=== PATIENT | female | born 1970 | race Caucasian/White ===

== ENCOUNTER 2017-06-16 14:34 | Outpatient (CLI) | payer OTHER ==
[2012-10-05 16:59] VITALS: BP 176/66
--- NOTE | 2017-06-16 16:17 | Diagnostic Imaging Report ---
EDSON FERRER [facility] [address] [facility]ly [facility] [address] [address] Report Submission Date: Jun 16, 2017 3:40:22 PM CDT Patient Study Name: DONOVAN HERNNADEZ Date: Jun 16, 2017 2:01:05 PM CDT Modality Type: US Gender: F Description: UNILAT LTD STDY EXT VEINS : 68 Institution: [facility] Physician: EDSON FERRER Examination: Ultrasound vein History: Leg discomfort Findings: Sonographic evaluation of the left lower extremity venous system from the groin to the popliteal fossa inclusive. Normal compressibility. No luminal filling defect. Normal waveforms and response to augmentation. No popliteal region fluid collection. Impression: No evidence for deep venous thrombosis. Electronically signed on Jun 16, 2017 3:40:22 PM CDT by: Matthieu RENAE
== END 2017-06-16 14:35 ==
LOC: RAD 14:34
PROVIDERS: ATTEND Family Medicine
DX: M79.89 Other specified soft tissue disorders (principal); E03.9 Hypothyroidism, unspecified
CPT/HCPCS: 36415; 84439; 84443; 84481; 93971

== ENCOUNTER 2017-06-30 10:52 | Outpatient (CLI) | payer OTHER ==
[2012-10-05 16:59] VITALS: BP 176/66
[2017-06-30 11:18] LABS: BASOPHILS % 0.4 (0.0-1.5); EOSINOPHILS % 2.5 % (0.0-6.8); MEAN CORPUSCULAR HEMOGLOBIN 28.9 pg (28.0-34.0); MEAN CORPUSCULAR VOLUME 87.6 fl (80.0-100.0); MONOCYTES % 5.2 % (0.0-11.0); NEUTROPHILS # 4.9 # k/uL (1.4-7.7)
[2017-06-30 12:01] LABS: eGFR (African) > 60; eGFR (Non-African) > 60
== END 2017-06-30 11:26 ==
LOC: RT 10:52
PROVIDERS: ATTEND Family Medicine
DX: R42 Dizziness and giddiness (principal)
CPT/HCPCS: 36415; 80053; 85025

== ENCOUNTER 2017-07-13 14:00 | Outpatient (CLI) | payer OTHER ==
[2012-10-05 16:59] VITALS: BP 176/66
== END 2017-07-13 14:02 ==
LOC: CARD 14:00
PROVIDERS: ATTEND Internal Medicine Cardiovascular Disease
DX: R55 Syncope and collapse (principal); Z86.79 Personal history of other diseases of the circulatory system; I10 Essential (primary) hypertension; Z72.0 Tobacco use
CPT/HCPCS: 99213

== ENCOUNTER 2017-08-30 09:23 | Outpatient (CLI) | payer OTHER ==
[2012-10-05 16:59] VITALS: BP 176/66
[2017-08-30 09:49] LABS: MEAN CORPUSCULAR HEMOGLOBIN 29.5 pg (28.0-34.0); MEAN CORPUSCULAR VOLUME 87.5 fl (80.0-100.0)
== END 2017-08-30 09:30 ==
LOC: LAB 09:23
PROVIDERS: ATTEND Family Medicine
DX: N93.8 Other specified abnormal uterine and vaginal bleeding (principal)
CPT/HCPCS: 36415; 82670; 83001; 83002; 85027

== ENCOUNTER 2018-06-14 15:06 | Outpatient (CLI) | payer OTHER ==
[2012-10-05 16:59] VITALS: BP 176/66
[2018-06-14 16:38] LABS: eGFR (Non-African) > 60
== END 2018-06-14 15:08 ==
LOC: RT 15:06
PROVIDERS: ATTEND Family Medicine
DX: R06.09 Other forms of dyspnea (principal); R42 Dizziness and giddiness
CPT/HCPCS: 36415; 80053; 85027

== ENCOUNTER 2019-06-14 10:59 | Outpatient (CLI) | payer OTHER ==
[2012-10-05 16:59] VITALS: BP 176/66
[2019-06-14 13:23] LABS: TSH 0.52 mIU/l (0.465-4.685)
== END 2019-06-14 11:05 ==
LOC: LAB 10:59
PROVIDERS: ATTEND Family Medicine
DX: E03.9 Hypothyroidism, unspecified (principal)
CPT/HCPCS: 36415; 84439; 84443; 84481

== ENCOUNTER 2019-07-07 10:22 | Outpatient (CLI) | payer OTHER ==
[2012-10-05 16:59] VITALS: BP 176/66
[2019-07-07 10:39] LABS: BASOPHILS % 0.2 % (0.0-1.5); NEUTROPHILS # 5.6 # k/uL (1.4-7.7)
[2019-07-07 11:27] LABS: eGFR (Non-African) > 60
[2019-07-07 11:28] LABS: HDL 32 mg/dL (>40)
== END 2019-07-07 10:27 ==
LOC: LAB 10:22
PROVIDERS: ATTEND Family Medicine
DX: Z13.220 Encounter for screening for lipoid disorders (principal)
CPT/HCPCS: 36415; 80053; 80061; 85025

== ENCOUNTER 2019-07-26 10:50 | Emergency (ER) | payer OTHER ==
--- NOTE | 2019-07-26 11:00 | ED Physician Documentation ---
Syncope/Near Syncope - HISTORIAN Historian: patient - HPI Stated Complaint: syncope with dizziness for a month or so Chief Complaint: Syncope Witnessed: No Position at Time of Episode: sitting (she states she had the forethought to sit down she felt it coming on ) Symptoms Prior to Episode: light-headed, visual disturbance, nausea, vomiting. denies: chest pain, palpitations, racing heart, abdominal pain, back pain Symptoms after Event: denies: confused after event, incontinent of urine, incontinent of stool, breathing shallow, breathing stopped, lost pulse, dextrostick low RECEIVER, given D50 RECEIVER Location of Injury: none Associated Symptoms: nausea, vomiting, dizziness Further Comments: yes (She reports she did see Dr Garibay (PCP) for dizziness and she was dx with vertigo. She states she has had issues with dizziness for a month or so. She states the dx made sense due to increased dizzness with turning in bed and a family history. She does have heavy periods. she does feel weak post event. She has had no recent illness. No prior concerns other than the dizziness. SHe was in a hot shower. She states she did get a wave of dizziness. nausea and started to vomit and she also notes the thought to sit down so she did sit.) - ROS CONST: denies: recent illness, fever, cough, chills EYES/ENT: none GI/: denies: diarrhea LNMP: denies: NEURO/PSYCH: denies: confusion - PAST HX Cardiac Disease: other (valve condition ) Allergies/Adverse Reactions: Allergies Allergy/AdvReac Type Severity Reaction Status Date / Time Penicillins Allergy Severe Hives Verified 07/26/19 11:40 Home Medications: Ambulatory Orders Medication Instructions Recorded Meclizine HCl 25 mg PO PRN PRN 07/26/19 - SOCIAL HX Smoking History: cigarettes Alcohol Use: none Drug Use: none - FAMILY HX Family History: none - VITAL SIGNS Vital Signs: Vital Signs Temp Pulse Resp BP Pulse Ox 97.8 F 72 16 166/82 99 07/26/19 11:00 07/26/19 13:17 07/26/19 12:58 07/26/19 12:58 07/26/19 12:58 - REVIEWED ASSESSMENTS Nursing Assessment Reviewed: Yes Vitals Reviewed: Yes Progress - Progress Progress: 1300: discussed findings and plan she is agreeable DG ED Results Lab/Radiology - Lab Results Lab Results: Lab Results 07/26/19 07/26/19 11:17 11:17 WBC 11.20 K/ul K/ul (4.00-12.00) RBC 5.48 M/ul H M/ul (3.90-5.20) Hgb 16.5 g/dL H g/dL (11.5-16.0) Hct 49.7 % H % (34.5-46.5) MCV 91.0 fl fl (80.0-100.0) MCH 30.2 pg pg (28.0-34.0) MCHC 33.3 g/dL g/dL (30.0-36.0) RDW 11.3 % % (11.3-14.3) Plt Count 245 K/mm3 K/mm3 (130-400) Neut % (Auto) 79.4 % H % (39.0-79.0) Lymph % (Auto) 10.9 % L % (16.0-50.0) Forest % (Auto) 8.0 % % (0.0-11.0) Eos % (Auto) 1.0 % % (0.0-6.8) Baso % (Auto) 0.7 % % (0.0-1.5) Neut # (Auto) 8.9 # k/uL H # k/uL (1.4-7.7) Lymph # (Auto) 1.2 # k/uL # k/uL (0.6-4.0) Forest # (Auto) 0.9 # k/uL # k/uL (0.0-0.9) Eos # (Auto) 0.1 # k/uL # k/uL (0.0-0.6) Baso # (Auto) 0.1 # k/uL # k/uL (0.0-0.5) Sodium 143 mmol/L mmol/L (137-145) Potassium 3.5 mmol/L mmol/L (3.5-5.1) Chloride 102 mmol/L mmol/L (98-107) Carbon Dioxide 30 mmol/L mmol/L (22-30) Anion Gap 14.5 BUN 12 mg/dL mg/dL (7-17) Creatinine 0.82 mg/dL mg/dL (0.52-1.04) Est GFR ( Amer) > 60 (60 - ) Est GFR (Non-Af Amer) > 60 (60 - ) Glucose 74 mg/dL mg/dL (74-106) Calcium 10.0 mg/dL mg/dL (8.4-10.2) Total Bilirubin 0.8 mg/dL mg/dL (0.2-1.3) AST 23 U/L U/L (15-46) ALT 13 U/L U/L (0-35) Alkaline Phosphatase 77 U/L U/L (38-126) Total Protein 8.6 g/dL H g/dL (6.3-8.2) Albumin 4.7 g/dL g/dL (3.5-5.0) - Orders Orders: ED Orders Category Date Time Status Continuous EKG monitoring Q1H Care 07/26/19 11:17 Active IV Started NOW Care 07/26/19 11:17 Active Orthostatics 1T Care 07/26/19 12:[address] BRAIN W/O CONTRAST Stat Exams 07/26/19 Completed CBC/PLATELET/DIFF Stat Lab 07/26/19 11:17 Completed CMP Stat Lab 07/26/19 11:17 Completed UA W/MICRO IF INDICATED Routine Lab 07/26/19 11:17 Ordered 0.9 % Sodium Chloride [Normal Saline] 1,000 ml Med 07/26/19 11:17 Discontinued IV NOW Syncope Physical Exam - Physical Exam General Appearance: no acute distress, alert EENT: nml eye inspection, PERRL, scleral icterus Respiratory: no resp distress, chest non-tender, breath sounds normal CVS: reg rate & rhythm, heart sounds normal, equal pulses Abdomen: non-tender, nml bowel sounds Skin: warm/dry Extremities: non-tender, normal range of motion, no evidence of injury, no edema - Neuro/Psych Higher Functions: alert, oriented x3 Discharge Clincal Impression: Syncope Qualifiers: Syncope type: unspecified Qualified Code(s): R55 - Syncope and collapse Referrals: Brook Garibay MD [Primary Care Provider] - 2 Days Comments: 1. Change position slowly 2. Eat small frequent meals 3. Follow up with PCP 4. Return to ER for any increased concerns Condition: Stable Disposition: 01 HOME, SELF-CARE Decision to Admit: NO (t) Date of Decison to Admit: 07/26/19 Decision Time: 13:00
[2019-07-26] MEDS ORDERED: 0.9 % SODIUM CHLORIDE 1,000 ML IV ONE (11:17)
[2019-07-26 11:23] LABS: BASOPHILS % 0.7 % (0.0-1.5); NEUTROPHILS # 8.9 # k/uL (1.4-7.7)
[2019-07-26 11:36] LABS: eGFR (Non-African) > 60
--- NOTE | 2019-07-26 11:57 | Diagnostic Imaging Report ---
PATIENT MR#: [id number] PATIENT PATIENT NAME: DONOVAN HERNANDEZ DATE OF : 1970 REFERRING PHYSICIAN: Kandy Gunter EXAM DATE: 07/26/2019 ACCESSION NUMBER: [id number] EXAM DESCRIPTION: CT BRAIN W/O CONTRAST Examination: CT head without contrast History: DIZZINESS/SYNCOPE PT STATES ABOUT 8-8:30 AM IN [place] [facility] DIZZY CALLED FOR SON PASSED OUT. Comparison exam: None available Technique: Noncontrast head CT protocol. Findings: Ventricles are appropriate for patient age. Early frontal lobe atrophy. Cerebrocerebellar p arenchyma demonstrates normal attenuation. No evidence for parenchymal hemorrhage. No evidence for mass or mass effect. No midline shift. No extra axial fluid collections. Partial visualization of the paranasal sinuses, mastoid air cells, orbits, skull and scalp without gross irregularity. Impression: No acute parenchymal process. No hemorrhage. Read by: Dr. Matthieu Simpson Transcribed by: Transcribed Date: Electronically signed by: Dr. Matthieu Simpson Date signed: 07/26/2019 11:56:50 AM
[2019-07-26 13:27] VITALS: BP 166/82
== END 2019-07-26 12:58 | disposition home or self-care (01) ==
LOC: ED 10:50
DX: R42 Dizziness and giddiness (principal); R55 Syncope and collapse
CPT/HCPCS: 70450; 80053; 85025; 96360; 99283; 99284; J7030; 93005; S1016